=== PATIENT | female | born 1955 | race Caucasian/White ===

== ENCOUNTER → 2019-10-14 | Outpatient (CLI) | payer MEDICARE ==
--- NOTE | 2019-10-14 15:23 | MR ---
EXAMINATION TYPE: MR knee LT wo con DATE OF EXAM: 10/14/2019 COMPARISON: None HISTORY: Twisted Knee, heard a pop. Now having Lateral pain and under Patella. TECHNIQUE: Multiplanar, multisequence imaging of the left knee is performed without IV contrast. FINDINGS: MEDIAL MENISCUS: Anterior horn medial meniscus appears intact. There is linear signal within the post erior portion of the posterior horn medial meniscus likely related to some degenerative change. Mild internal derangement could be considered (type I tear). LATERAL MENISCUS: There is increased signal slightly greater than expected medial anterior horn later al meniscus. Internal derangement should be suspected, type I tear. This greater than typical for lig ament attachment sites. Posterior horn lateral meniscus appears intact CRUCIATE LIGAMENTS: The anterior and posterior cruciate ligaments are intact and unremarkable. COLLATERAL LIGAMENTS: The medial collateral ligament and lateral collateral ligament complex are inta ct and unremarkable. EXTENSOR MECHANISM: Visualized quadriceps and patellar tendons are intact. EFFUSION: No significant suprapatellar joint effusion. POPLITEAL CYST: No popliteal/molina cyst. TRICOMPARTMENT SPACES: Minimal narrowing of the medial lateral compartment joint spaces appears to be present. The patellofemoral joint space appears preserved. CARTILAGE: There is thinning of the articular cartilage with some mild loss of the medial lateral com partment joint spaces. Mild osteoarthritic degenerative change could be considered. BONE MARROW SIGNAL: No focal abnormal marrow signal is appreciated. OTHER: No additional significant abnormality is appreciated. IMPRESSION: 1. Type I tear versus degenerative change posterior medial meniscus. 2. Type I tear medial anterior lateral meniscus. 3. Mild osteoarthritic degenerative change with thinning of the articular cartilage and mild narrowin g of the medial lateral compartment joint spaces. Patellofemoral joint space appears preserved.
== END | disposition home or self-care (01) ==
LOC: RADMRIMAIN 12:00
PROVIDERS: ATTEND Orthopaedic Surgery
DX: M17.12 Unilateral primary osteoarthritis, left knee (principal); S83.282A Other tear of lateral meniscus, current injury, left knee, initial encounter

== ENCOUNTER → 2019-10-25 | Outpatient (CLI) | payer BC, MEDICARE | END | disposition home or self-care (01) | LOC: LABWHC1 11:48 | PROVIDERS: ATTEND Orthopaedic Surgery | DX: Z11.59 Encounter for screening for other viral diseases (principal) ==

== ENCOUNTER 2019-10-27 09:50 | Day surgery (SDC) | payer BC, MEDICARE ==
[2019-10-26 12:24] VITALS: BMI 36.8
--- NOTE | 2019-10-26 15:26 | HP ---
HISTORY AND PHYSICAL DATE OF SURGERY: 10/27/2019 Rosalee Cruz is a 64-year-old patient seen with progressive left knee pain. We discussed options for treatment. She elected to proceed with left knee arthroscopy. Consent was obtained. PAST MEDICAL HISTORY: Hypothyroidism, gastroesophageal reflux disease, hypertension. PAST SURGICAL HISTORY: D&C, cholecystectomy. DAILY MEDICATIONS: Benazepril, fluoxetine, levothyroxine, spironolactone. ALLERGIES: LEVAQUIN, TETANUS. SOCIAL HISTORY: She denies current tobacco use. PHYSICAL EVALUATION OF THE LEFT KNEE: Range of motion 0 to 130. Mild effusion. Tenderness along the medial and lateral joint lines. Positive medial Shivani's. Positive lateral Shivani's. Ligaments stable. Hip rotation without pain. Distal neurovascular exam intact. RADIOGRAPHS: Left knee radiographs failed to reveal any significant osseous abnormality. Left knee MRI revealed medial and lateral meniscal tears. IMPRESSION: 1. Internal derangement of the left knee with medial and lateral meniscal tears. 2. Hypertension. 3. Hypothyroidism. PLAN: Left knee arthroscopy with partial meniscectomy, partial synovectomy and debridement. MMODL / IJN: [id number] /
[~2019-10-27 09:50] MED LIST: DEXAMETHASONE SOD PHOSPHATE 10 MG/ML 1 ML VIAL IV ONE; LACTATED RINGERS 1,000 ML IV SCH; LIDOCAINE 1% (10MG/ML) FOR IV START INTRADERMA PRN; MIDAZOLAM 2 MG/2 ML VIAL IV PRN; ONDANSETRON 4 MG/2 ML VIAL IVP ONE
[2019-10-27 10:22] VITALS: RESP 16
[2019-10-27 10:30] LABS: Glucose,Whole Blood 129 mg/dL (75-99)
[2019-10-27] MEDS ORDERED: SCOPOLAMINE 1.5MG/72HR PATCH TRANSDERM ONE (10:38)
[2019-10-27] MEDS ORDERED: fentaNYL (PF) 50 MCG/ML 2 ML AMP ONE (11:06)
[2019-10-27] MEDS ORDERED: LIDOCAINE 1% INJ 10MG/ML (20 ML MDV) ONE (11:06)
[2019-10-27] MEDS ORDERED: MIDAZOLAM 2 MG/2 ML VIAL ONE (11:06)
[2019-10-27] MEDS ORDERED: PROPOFOL 10 MG/ML 20 ML VIAL IV ONE (11:06)
[2019-10-27] MEDS ORDERED: SUCCINYLCHOLINE CHLORIDE 100 MG/5 ML SYR IV ONE (11:06)
[2019-10-27] MEDS ORDERED: BUPIVACAINE (PF) 0.25% 30 ML VIAL SQ ONE ×2 (11:25→11:45)
--- NOTE | 2019-10-27 12:02 | P.OP ---
Date of Procedure: 10/27/19 Preoperative Diagnosis: Internal derangement left knee Postoperative Diagnosis: 1. Tear medial meniscus left knee 2. Grade 4 chondromalacia medial femoral condyle left knee 3. Reactive synovitis medial, lateral and suprapatellar compartments left knee Procedure(s) Performed: 1. Arthroscopic partial medial meniscectomy left knee 2. Arthroscopic chondroplasty medial femoral condyle left knee 3. Arthroscopic microfracture medial femoral condyle left knee 4. Arthroscopic partial synovectomy medial, lateral and suprapatellar compartments left knee Anesthesia: AAMIRA, local Surgeon: Jj Gerber Estimated Blood Loss (ml): 7 Pathology: none sent Condition: stable Disposition: PACU Indications for Procedure: 64-year-old patient seen with progressive left knee pain. After treatment options were discussed, she elected to proceed with arthroscopy. Operative Findings: See description of procedure Description of Procedure: Patient was taken to the operative suite. Patient underwent a general anesthetic by the department of anesthesia. Patient was given preoperative antibiotics. The left lower extremity was placed in a well-padded arthroscopic leg bishop. The left leg was prepped and draped in the normal sterile orthopedic fashion. A lateral parapatellar and suprapatellar incision was made. Trochars were inserted. Arthroscopy was initiated. Suprapatellar pouch revealed diffuse thick reactive synovitis. The patellofemoral joint appeared to articulate congruently. There was grade 1 chondromalacia of the patella. The scope was guided into the medial gutter. No loose bodies or plica were identif ied. The scope was then guided into the medial compartment. A medial parapatellar incision was made. Trocar inserted followed by probe. There was a large tear involving the posterior horn medial meniscus. There were grade 3/4 chondromalacia changes of the medial femoral condyle with osteochondral flap tears present. There was thick reactive some-itis anteriorly. I performed a partial medial meniscectomy getting down to stable meniscal tissue. I performed a chondroplasty of the medial femoral condyle getting down to stable tissue. I performed a partial synovectomy decompressing reactive synovitis. The residual meniscus was stable. There was good decompression of the synovitis. There was an area of exposed bone in that area of chondromalacia medial femoral condyle. I performed a microfracture in that area penetrating the bone with resultant bleeding at the microfracture site. The peripheral osteochondral tissue was stable. Scope and probe were then guided into the intercondylar notch. Cruciates were identified, probed and found to be stable. The scope and probe were then guided into lateral compartment. The lateral meniscus was stable. There were grade 1 chondral malacia changes of the lateral compartment. There was thick reactive anteriorly. I performed a partial synovectomy decompressing the reactive synovitis. There was good decompression of the synovitis. The scope was in guided back into the suprapatellar compartment. I introduced a motorized shaver into the suprapatellar compartment. I debrided some piecemeal fragments of meniscus I encountered. I performed a partial synovectomy. There was good decompression of synovitis. I took one more look around the entire knee, no residual debris. Instruments were now removed from the joint. The lupe int was infiltrated with .25% Marcaine. Steri-Strips were applied to the portal sites. Sterile dressings were applied. The patient was placed into a ELI hose. No tourniquet was utilized. The patient was awakened, transferred to a bed and taken to recovery stable satisfactory condition.
[2019-10-27] MEDS ORDERED: LACTATED RINGERS 1,000 ML IV ONE ×2 (12:20)
[2019-10-27 12:23] VITALS: TEMP 97.1
[2019-10-27] MEDS: HYDROmorphone 0.5 MG/0.5 ML SYRINGE IVP PRN ×2 (12:24→12:42)
[2019-10-27 13:42] VITALS: BP 119/54; PULSE 68
== END 2019-10-27 14:49 | disposition home or self-care (01) ==
LOC: OR 09:50
PROVIDERS: ATTEND Orthopaedic Surgery
DX: S83.242A Other tear of medial meniscus, current injury, left knee, initial encounter (principal); X58.XXXA Exposure to other specified factors, initial encounter; M94.262 Chondromalacia, left knee; M65.862 Other synovitis and tenosynovitis, left lower leg; I10 Essential (primary) hypertension; K21.9 Gastro-esophageal reflux disease without esophagitis; E03.9 Hypothyroidism, unspecified; M19.90 Unspecified osteoarthritis, unspecified site; Z90.49 Acquired absence of other specified parts of digestive tract; Z98.890 Other specified postprocedural states; Z79.890 Hormone replacement therapy; Z79.899 Other long term (current) drug therapy; Z88.1 Allergy status to other antibiotic agents; Z88.5 Allergy status to narcotic agent; Z88.7 Allergy status to serum and vaccine
CPT/HCPCS: 84132; 29881; 29879; 29876; J2250; J1100; J0690; J2405; J2001; J3010; J0330; J2704; J1170

== ENCOUNTER → 2020-03-20 | Outpatient (CLI) | payer MEDICARE ==
--- NOTE | 2020-03-20 10:18 | MR ---
EXAMINATION TYPE: MR knee RT wo con DATE OF EXAM: 03/20/2020 COMPARISON: Plain film 02/22/2020 HISTORY: RT knee pain TECHNIQUE: Multiplanar, multisequence imaging of the right knee is performed without IV contrast. FINDINGS: MEDIAL MENISCUS: Linear increased signal is present within the posterior horn of the medial meniscus extending to the articular surface peripherally LATERAL MENISCUS: Anterior and posterior horns are intact without tear. CRUCIATE LIGAMENTS: The anterior and posterior cruciate ligaments are intact and there is a T2 bright focus, intermediate signal on T1 adjacent to the insertion of the anterior cruciate ligament measuri ng 6-7mm. COLLATERAL LIGAMENTS: The medial collateral ligament and lateral collateral ligament complex are inta ct and unremarkable. EXTENSOR MECHANISM: Visualized quadriceps and patellar tendons are intact. EFFUSION: No significant suprapatellar joint effusion. POPLITEAL CYST: No popliteal/molina cyst. TRICOMPARTMENT SPACES: Mild joint space loss medial compartment CARTILAGE: There is grade 2 to grade III chondromalacia medial compartment BONE MARROW SIGNAL: No focal abnormal marrow signal is appreciated. OTHER: Intimal subcutaneous edema present anteriorly IMPRESSION: Tear of the posterior horn the medial meniscus. Mild osteoarthritis.
== END | disposition home or self-care (01) ==
LOC: RADMRIMAIN 08:56
PROVIDERS: ATTEND Orthopaedic Surgery
DX: M17.11 Unilateral primary osteoarthritis, right knee (principal); S83.241A Other tear of medial meniscus, current injury, right knee, initial encounter

== ENCOUNTER → 2020-04-13 | Outpatient (CLI) | payer MEDICARE ==
[2020-04-13 10:07] LABS: Potassium 3.8 mmol/L (3.5-5.1)
[2020-04-13 10:11] LABS: Basophils # (A) 0.1 k/uL (0-0.2); Basophils % (A) 1 %; Eosinophils # (A) 0.2 k/uL (0-0.7); Eosinophils % (A) 1 %; HCT 41.3 % (34.0-46.0); HGB 13.8 gm/dL (11.4-16.0); Lymphocytes # (A) 3.5 k/uL (1.0-4.8); Lymphocytes % (A) 31 %; MCHC 33.4 g/dL (31.0-37.0); Mean Platelet Volume 7.1; Monocytes # (A) 0.7 k/uL (0-1.0); Monocytes % (A) 6 %; Neutrophils # (A) 6.7 k/uL (1.3-7.7); Neutrophils % (A) 59 %; Platelet Count 356 k/uL (150-450); RBC 4.44 m/uL (3.80-5.40); RDW 12.4 % (11.5-15.5); WBC 11.4 k/uL (3.8-10.6)
== END | disposition home or self-care (01) ==
LOC: LABPAT 09:05
PROVIDERS: ATTEND Orthopaedic Surgery
DX: Z01.818 Encounter for other preprocedural examination (principal); M23.91 Unspecified internal derangement of right knee
CPT/HCPCS: 36415; 80051; 85025

== ENCOUNTER → 2020-11-18 | Outpatient (CLI) | payer MEDICARE ==
[2020-11-18 10:17] LABS: Basophils # (A) 0.1 k/uL (0-0.2); Basophils % (A) 1 %; Eosinophils # (A) 0.2 k/uL (0-0.7); Eosinophils % (A) 2 %; HCT 37.5 % (34.0-46.0); Lymphocytes # (A) 3.1 k/uL (1.0-4.8); Lymphocytes % (A) 33 %; MCH 31.9 pg (25.0-35.0); MCHC 34.6 g/dL (31.0-37.0); MCV 92.3 fL (80.0-100.0); Mean Platelet Volume 7.2; Monocytes # (A) 0.6 k/uL (0-1.0); Monocytes % (A) 7 %; Neutrophils # (A) 5.4 k/uL (1.3-7.7); Neutrophils % (A) 57 %; Platelet Count 325 k/uL (150-450); RBC 4.07 m/uL (3.80-5.40); RDW 12.8 % (11.5-15.5); WBC 9.5 k/uL (3.8-10.6)
== END | disposition home or self-care (01) ==
LOC: LABPAT 08:55
PROVIDERS: ATTEND Orthopaedic Surgery
DX: Z01.812 Encounter for preprocedural laboratory examination (principal); M23.91 Unspecified internal derangement of right knee
CPT/HCPCS: 80051; 85025; 93005

== ENCOUNTER 2020-11-30 08:56 | Day surgery (SDC) | payer MEDICARE ==
[2020-11-24 15:29] VITALS: BMI 36.1
--- NOTE | 2020-11-29 15:55 | HP ---
HISTORY AND PHYSICAL Ana Cruz is a 65-year-old patient seen with progressive left knee pain. We discussed options for treatment. She elected to proceed with arthroscopy. Consent was obtained. PAST MEDICAL HISTORY: Hypertension, hypothyroidism, gastroesophageal reflux disease. PAST SURGICAL HISTORY: Cholecystectomy, D and C, knee arthroscopy. MEDICATIONS: Benazepril, levothyroxine, furosemide, Pepcid. ALLERGIES: LEVAQUIN AND TETANUS. SOCIAL HISTORY: She denies tobacco use. PHYSICAL EVALUATION OF THE LEFT KNEE: Range of motion zero to 130. Mild effusion. Tenderness medial joint line. Positive medial Shivani's. Ligament stable. Hip rotation without pain. Distal neurovascular exam is intact. RADIOGRAPHS: Radiographs were obtained of the right knee revealing some mild osteoarthritic changes. IMPRESSION: 1. Internal derangement right knee with medial meniscal tear. 2. Hypothyroidism. 3. Hypertension. PLAN: Right knee arthroscopy with partial meniscectomy and debridement. MMODL / IJN: [id number] /
[~2020-11-30 08:56] MED LIST changes: -DEXAMETHASONE SOD PHOSPHATE 10 MG/ML 1 ML VIAL IV ONE; +DEXAMETHASONE SOD PHOSPHATE 4 MG/ML 1 ML VIAL IV ONE; +HYDROmorphone 0.5 MG/0.5 ML SYRINGE IVP PRN
[2020-11-30] MEDS ORDERED: SCOPOLAMINE 1.5MG/72HR PATCH TRANSDERM ONE (09:50)
[2020-11-30] MEDS ORDERED: KETOROLAC 15 MG/ML 1 ML VIAL ONE (10:12)
[2020-11-30] MEDS ORDERED: LIDOCAINE 1% INJ 10MG/ML (20 ML MDV) ONE (10:12)
[2020-11-30] MEDS ORDERED: fentaNYL (PF) 50 MCG/ML 2 ML AMP ONE (10:12)
[2020-11-30] MEDS ORDERED: SUCCINYLCHOLINE CHLORIDE 100 MG/5 ML SYR IV ONE (10:12)
[2020-11-30] MEDS ORDERED: diphenhydrAMINE 50 MG/ML 1 ML VIAL ONE (10:12)
[2020-11-30] MEDS ORDERED: PROPOFOL 10 MG/ML 20 ML VIAL IV ONE (10:12)
[2020-11-30] MEDS ORDERED: MIDAZOLAM 2 MG/2 ML VIAL ONE (10:12)
[2020-11-30] MEDS ORDERED: BUPIVACAINE (PF) 0.25% 30 ML VIAL INTRAARTIC ONE ×2 (10:25→10:46)
--- NOTE | 2020-11-30 11:00 | P.OP ---
Date of Procedure: 11/30/20 Preoperative Diagnosis: Internal derangement right knee Postoperative Diagnosis: 1. Medial meniscal tear right knee 2. Grade 2 chondromalacia medial femoral right knee 3. Reactive synovitis medial, lateral and suprapatellar compartments right knee Procedure(s) Performed: 1. Arthroscopic partial medial meniscectomy right knee 2. Arthroscopic chondroplasty medial femoral condyle right knee 3. Arthroscopic partial synovectomy medial, lateral and suprapatellar compartments right knee Anesthesia: AAMIRA, local Surgeon: Jj Gerber Estimated Blood Loss (ml): 7 Pathology: none sent Condition: stable Disposition: PACU Indications for Procedure: 65-year-old patient seen with progressive right knee pain. After treatment options were discussed, she elected to proceed with arthroscopy. Operative Findings: See description of procedure Description of Procedure: Patient was taken to the operative suite. Patient underwent a general anesthetic by the department of anesthesia. Patient was given preoperative antibiotics. The right lower extremity was placed in a well-padded arthroscopic leg bishop. The right leg was prepped and draped in the normal sterile orthopedic fashion. A lateral parapatellar and suprapatellar incision was made. Trochars were inserted. Arthroscopy was initiated. Suprapatellar pouch revealed diffuse thick reactive synovitis. The patellofemoral joint appeared to articulate congruently. There was no significant chondromalacia present. The scope was guided into the medial gutter. No loose body or plica were identified. The scope was then guided into the medial compartment. A medial parapatellar incision was made. Trocar inserted followed by probe. There was a complex tear posterior horn medial meniscus. There were grade 2 chondromalacia changes of the medial femoral condyle with some osteochondral flap tears present. There was thick reactive synovitis anteriorly. I performed a partial medial meniscectomy getting down to stable meniscal tissue. I performed a cho ndroplasty of the medial femoral condyle getting down to stable osteochondral tissue. I performed a partial synovectomy decompressing the thick reactive synovitis. The residual meniscus was probed and found to be stable. The residual osteochondral surface of the medial femoral condyle was stable. There was good decompression of the synovitis. Scope and probe were then guided into the intercondylar notch. Cruciates were identified, probed and found to be stable. The scope and probe were then guided into lateral compartment. The lateral meniscus was probed and found to be stable. There was no significant chondromalacia present. There was some thick reactive synovitis anteriorly. I introduced a motorized shaver and performed a partial synovectomy. The shaver was removed. There was good decompression of the synovitis. The scope was in guided back into the suprapatellar compartment. I introduced a motorized shaver into the super patellar compartment. I debrided some piecemeal fragments of meniscus I encountered. I performed a partial synovectomy decompressing the thick reactive synovitis. The shaver was removed. There was good decompression of the synovitis. I took one more look on the entire knee, no residual debris. Instruments were now removed from the joint. The joint was infiltrated with .25% Marcaine. Steri-Strips were applied to the portal sites. Sterile dressings were applied. The patient was placed into a ELI hose. No tourniquet was utilized. The patient was awakened, transferred to a bed and taken to recovery stable satisfactory condition.
[2020-11-30 11:11] VITALS: TEMP 96.8
[2020-11-30 11:39] VITALS: RESP 16
[2020-11-30] MEDS ORDERED: HYDROcodone/APAP 5-325MG 1 EACH TAB ONE (12:17)
[2020-11-30] MEDS ORDERED: HYDROcodone/APAP 5-325MG 1 EACH TAB PO ONE (12:19)
[2020-11-30] MEDS ORDERED: LACTATED RINGERS 1,000 ML IV ONE (12:56)
[2020-11-30 13:02] VITALS: BP 108/72; PULSE 84
== END 2020-11-30 13:40 | disposition home or self-care (01) ==
LOC: OR 08:56
PROVIDERS: ATTEND Orthopaedic Surgery
DX: M94.261 Chondromalacia, right knee (principal); M65.861 Other synovitis and tenosynovitis, right lower leg; M17.11 Unilateral primary osteoarthritis, right knee; I10 Essential (primary) hypertension; E03.9 Hypothyroidism, unspecified; K21.9 Gastro-esophageal reflux disease without esophagitis; Z90.49 Acquired absence of other specified parts of digestive tract; Z98.890 Other specified postprocedural states; E11.9 Type 2 diabetes mellitus without complications; F32.9 Major depressive disorder, single episode, unspecified; Z79.890 Hormone replacement therapy; Z79.899 Other long term (current) drug therapy; Z88.1 Allergy status to other antibiotic agents; Z91.09 Other allergy status, other than to drugs and biological substances
CPT/HCPCS: 29881; 29876; J2250; J1200; J1100; J0690; J2405; J2001; J3010; J1885; J0330; J2704

== ENCOUNTER → 2024-05-14 | Outpatient (CLI) | payer MEDICARE ==
--- NOTE | 2024-05-14 15:04 | MR ---
EXAMINATION TYPE: MR knee RT wo con DATE OF EXAM: 05/14/2024 1:54 PM COMPARISON: 03/20/2020 CLINICAL INDICATION: Female, 69 years old with history of M25.561 PAIN IN RIGHT KNEE, Rt knee pain IV Contrast: cc (None if empty) TECHNIQUE: Multiplanar, multisequence imaging of the right knee is performed without IV contrast. FINDINGS: There is no fracture. There is mild abnormal increased signal intensity in the medial tibial plateau with interval developm ent of moderate to marked thinning of the articular cartilage of the medial compartment with mild hyp ertrophic spurring. There is truncation of the medial aspect of the medial meniscus possibly due to p rior medial meniscal tear repair there is abnormal signal intensity along the medial aspect is questi on of fraying or post surgical change. The lateral meniscus is intact. There is diffuse abnormal signal intensity of the anterior cruciate ligament consistent with partial tearing. The collateral ligaments and posterior cruciate ligaments are intact. There are few ganglion cysts associated with the anterior aspect of the anterior cruciate ligament. The articular cartilages of the patellofemoral compartment and lateral compartment are well preserved . Quadriceps and patellar tendons are intact. There is no significant joint effusion. IMPRESSION: 1. Abnormal configuration and signal intensity within the medial meniscus possibly related to prior m edial meniscal tear repair although there is probable fraying of the medial margin of the meniscus wi th small persistent microtears along the medial edge.. 2. Partial tearing of the anterior cruciate ligament with intact fibers and diffuse intensity within it. 3. Interval development of moderate osteoarthritis in the medial compartment of the knee [facility], , 05/14/2024 3:02 PM
== END | disposition home or self-care (01) ==
LOC: RADMRIMAIN 12:56
PROVIDERS: ATTEND Orthopaedic Surgery
DX: S83.241A Other tear of medial meniscus, current injury, right knee, initial encounter (principal); M17.11 Unilateral primary osteoarthritis, right knee; M67.461 Ganglion, right knee